=== PATIENT | female | born 1995 | race African-American/Black ===

== ENCOUNTER 2017-11-10 10:48 | Emergency (ER) | payer MEDICAID ==
[~2017-11-10] VITALS: Ht 160 cm; Wt 145.0 kg
[2017-11-10 11:03] VITALS: BP 124/81; PULSE 70; RESP 16; TEMP 97.6; O2SAT 100
[2017-11-10] MEDS ORDERED: SODIUM CHLORIDE 0.9% FLUSH 10 ML FLUSH IVF PRN (12:00)
--- NOTE | 2017-11-10 12:15 | PD ---
HPI Chief Complaint: Related Problem Time Seen by Provider: 11:38 Travel History International Travel<30 days: No Contact w/Intl Traveler<30days: No Traveled to known affect area: No History of Present Illness HPI Patient is a 22-year-old female presenting to emerge from for evaluation of vaginal bleeding. Patient states she is , her last menstrual cycle was at the beginning of October. She reports that one week ago she had one day of bleeding consistent with a period, that subsided and she has had intermittent spotting since that time. She does report continuing to pass small clots. She also reports burning at the end of her urinary stream. Additionally patient reports nausea with occasional vomiting. She denies any abdominal pain, chest pain, fever, chills, shortness of breath. This is her first . She has not been evaluated by [facility]. Symptom onset was sudden, symptoms are mild in nature. [facility] Past Medical History Medical History: Denies Significant Hx ?: Social History Alcohol Use: Yes Tobacco Use: No Substance Use: Yes ("weed") Allergies-Medications (Allergen,Severity, Reaction): Coded Allergies: No Known Allergies (Unverified , 11/10/17) Review of Systems Except as stated in HPI: all other systems reviewed are Neg Genitourinary: Positive: Dysuria, Vaginal Bleeding Physical Exam Narrative GENERAL: Well-developed, well-nourished, alert female. Presenting in no acute distress. SKIN: Warm and dry. HEAD: Atraumatic. Normocephalic. EYES: Pupils equal and round. No scleral icterus. No injection or drainage. ENT: No nasal bleeding or discharge. Mucous membranes pink and moist. NECK: Trachea midline. No JVD. CARDIOVASCULAR: Regular rate and rhythm. RESPIRATORY: No accessory muscle use. Clear to auscultation. Breath sounds equal bilaterally. GASTROINTESTINAL: Abdomen soft, non-tender, nondistended. Hepatic and splenic margins not palpable. MUSCULOSKELETAL: Extremities without clubbing, cyanosis, or edema. No obvious deformities. NEUROLOGICAL: Awake and alert. No obvious cranial nerve deficits. Motor grossly within normal limits. Five out of 5 muscle strength in the arms and legs. Normal speech. PSYCHIATRIC: Appropriate mood and affect; insight and judgment normal. Data Data Last Documented VS Vital Signs Date Time Temp Pulse Resp B/P (MAP) Pulse Ox O2 Delivery O2 Flow Rate FiO2 11/10/17 11:03 97.6 70 16 124/81 (95) 100 Orders Orders Ed Urine Pregnancytest Poc (11/10/17 11:42) Beta Hcg (Quant/Titer) (11/10/17 11:52) Complete Blood Count With Diff (11/10/17 11:52) Comprehensive Metabolic Panel (11/10/17 11:52) Complete Rh (11/10/17 11:52) Urinalysis - C+S If Indicated (11/10/17 11:52) Iv Access Insert/Monitor (11/10/17 11:52) Sodium Chloride 0.9% Flush (Ns Flush) (11/10/17 12:00) Urine Culture (11/10/17 12:00) Us Pelvis (Ques Preg/Ectopic) (11/10/17 ) Ed Discharge Order (11/10/17 13:41) Labs Laboratory Tests Test 11/10/17 12:00 11/10/17 12:05 Urine Color YELLOW Urine Turbidity HAZY Urine pH 6.0 Urine Specific [place] 1.027 Urine Protein 30 mg/dL Urine Glucose (UA) NEG mg/dL Urine Ketones NEG mg/dL Urine Occult Blood SMALL Urine Nitrite NEG Urine Bilirubin NEG Urine Urobilinogen LESS THAN 2.0 MG/DL Urine Leukocyte Esterase LARGE Urine RBC 10 /hpf Urine WBC 69 /hpf Urine Squamous Epithelial Cells 23 /hpf Urine Transitional Epithelial Cells 1 /hpf Urine Bacteria MOD /hpf Urine Mucus FEW /lpf Microscopic Urinalysis Comment CULTURE INDICATED White Blood Count 7.0 TH/MM3 Red Blood Count 4.46 MIL/MM3 Hemoglobin 13.8 GM/DL Hematocrit 39.9 % Mean Corpuscular Volume 89.5 FL Mean Corpuscular Hemoglobin 30.8 PG Mean Corpuscular Hemoglobin Concent 34.5 % Red Cell Distribution Width 12.9 % Platelet Count 406 TH/MM3 Mean Platelet Volume 6.8 FL Neutrophils (%) (Auto) 73.6 % Lymphocytes (%) (Auto) 19.6 % Monocytes (%) (Auto) 6.0 % Eosinophils (%) (Auto) 0.6 % Basophils (%) (Auto) 0.2 % Neutrophils # (Auto) 5.2 TH/MM3 Lymphocytes # (Auto) 1.4 TH/MM3 Monocytes # (Auto) 0.4 TH/MM3 Eosinophils # (Auto) 0.0 TH/MM3 Basophils # (Auto) 0.0 TH/MM3 CBC Comment DIFF FINAL Differential Comment Blood Urea Nitrogen 7 MG/DL Creatinine 0.77 MG/DL Random Glucose 93 MG/DL Total Protein 8.2 GM/DL Albumin 4.2 GM/DL Calcium Level 9.3 MG/DL Alkaline Phosphatase 52 U/L Aspartate Amino Transf (AST/SGOT) 13 U/L Alanine Aminotransferase (ALT/SGPT) 16 U/L Total Bilirubin 0.5 MG/DL Sodium Level 134 MEQ/L Potassium Level 3.7 MEQ/L Chloride Level 103 MEQ/L Carbon Dioxide Level 24.4 MEQ/L Anion Gap 7 MEQ/L Estimat Glomerular Filtration Rate 116 ML/MIN Human Chorionic Gonadotropin, Quant 90876 MIU/ML MDM Medical Decision Making Medical Screen Exam Complete: Yes Emergency Medical Condition: Yes Interpretation(s) Vital Signs Date Time Temp Pulse Resp B/P (MAP) Pulse Ox O2 Delivery O2 Flow Rate FiO2 11/10/17 11:03 97.6 70 16 124/81 (95) 100 Differential Diagnosis Threatened versus miscarriage versus bleeding during versus other Narrative Course Patient is a 22-year-old female presenting to emerge from for evaluation of vaginal bleeding during . Patient's vital signs are stable, labs and imaging ordered and pending. Urine test at bedside is positive. Ultrasound ordered and pending CBC with no acute findings Chemistry is unremarkable HCG is 86,474 UA is consistent with UTI, reflex culture is pending. Pelvic ultrasound shows single intrauterine gestation corresponding to 7 weeks 6 days with heart rate of 157 bpm. Patient was advised on findings. She then requested information regarding clinics in the area. Patient was advised that if she decided to continue with the she should have repeat hCG test in 48 hours. She is encouraged to return to emergency department for any new or worsening symptoms. Patient verbalized understanding of instructions. Patient stable for discharge. Diagnosis Primary Impression: at early stage Additional Impressions: Bleeding in early UTI (urinary tract infection) Qualified Codes: N39.0 - Urinary tract infection, site not specified; R31.9 - Hematuria, unspecified Referrals: Resident Buyer 1 week Patient Instructions: First Trimester (ED), General Instructions Additional Instructions: Pelvic rest/avoid sexual intercourse until evaluated by [facility] Return to emergency department immediately for any new or worsening symptoms You should return to emergency department for repeat hCG testing in 48 hours Med/Other Pt SpecificInfo: Prescription(s) given, No Change to Meds Scripts Cephalexin (Keflex) 500 Mg Cap 500 MG PO Q12H for Infection, #14 CAP 0 Refills Prov: Wendy Alejandre 11/10/17 Disposition: 01 DISCHARGE HOME Condition: Stable Wendy Alejandre Nov 10, 2017 12:15
[2017-11-10 12:22] LABS: AUTOMATED NEUTROPHIL # 5.2 TH/MM3 (1.8-7.7); BASOPHIL % 0.2 % (0.0-2.0); EOSINOPHIL % 0.6 % (0.0-4.0); HEMATOCRIT 39.9 % (35.0-46.0); HEMOGLOBIN 13.8 GM/DL (11.6-15.3); LYMPH % 19.6 % (9.0-44.0); LYMPHOCYTE # 1.4 TH/MM3 (1.0-4.8); MEAN CELL VOLUME 89.5 FL (80.0-100.0); MEAN CORPUSCULAR HEMOGLOBIN 30.8 PG (27.0-34.0); MEAN CORPUSCULAR HGB CONC 34.5 % (32.0-36.0); MEAN PLATELET VOLUME 6.8 FL (7.0-11.0); MONOCYTE # 0.4 TH/MM3 (0-0.9); NEUT % 73.6 % (16.0-70.0); PLATELET COUNT 406 TH/MM3 (150-450); RED BLOOD COUNT 4.46 MIL/MM3 (4.00-5.30); RED CELL DISTRIBUTION WIDTH 12.9 % (11.6-17.2)
[2017-11-10 12:32] LABS: BACTERIA, URINE MOD /hpf; BILIRUBIN, URINE NEG (NEG); BLOOD, URINE SMALL (NEG); GLUCOSE,URINE NEG (NEG); KETONE, URINE NEG (NEG); MUCUS URINE FEW /lpf (OCC); NITRITE,URINE NEG (NEG); SQUAMOUS EPITHELIAL CELL URINE 23 /hpf (0-5); TRANSITIONAL EPI CELLS, URINE 1 /hpf; URINE COLOR YELLOW (YELLW/STRAW); URINE LEUKOCYTE ESTERASE LARGE (NEG)
[2017-11-10 12:33] LABS: ALBUMIN 4.2 GM/DL (3.4-5.0); AST (GOT) 13 U/L (16-38); BICARBONATE 24.4 MEQ/L (21.0-32.0); BLOOD UREA NITROGEN 7 MG/DL (7-18); CALCIUM 9.3 MG/DL (8.5-10.1); CHLORIDE 103 MEQ/L (98-107); CREATININE 0.77 MG/DL (0.50-1.00); GLOMERULAR FILTRATION RATE 116 ML/MIN (>89); GLUCOSE,RANDOM 93 MG/DL (74-106); SODIUM (NA) 134 MEQ/L (136-145)
[2017-11-10 12:34] LABS: ALT (GPT) 16 U/L (9-42)
[2017-11-10 12:50] LABS: ALKALINE PHOSPHATASE 52 U/L (45-117); TOTAL BILIRUBIN ADULT 0.5 MG/DL (0.2-1.0); TOTAL PROTEIN 8.2 GM/DL (6.4-8.2)
--- NOTE | 2017-11-10 13:33 | RADRPT ---
EXAM DATE/TIME: 11/10/2017 12:27 [place] COMPARISON: No previous studies available for comparison. INDICATIONS : Bleeding with . LAB(S): Beta-hC,474 MEDICAL HISTORY : . SURGICAL HISTORY : None. ENCOUNTER: Initial ACUITY: 1 week PAIN SCORE: 0/10 LOCATION: Bilateral pelvis MEASUREMENTS: UTERUS: 8.2 x 5.2 x 5.9 cm ENDOMETRIAL STRIPE: 18 mm RIGHT OVARY: 4.5 x 2.7 x 2.0 cm LEFT OVARY: 3.5 x 1.9 x 2.0 cm FREE FLUID: No CROWN RUMP LENGTH: 1.5 cm = 7 WKS 6 DAYS FHR: 157 BPM FINDINGS: UTERUS: There is an intrauterine gestational sac with pole present corresponding to 7 weeks and 6 days. cardiac activity is present with heart rate of 157 bpm. RIGHT OVARY: Ovary contains no mass or significant cystic lesion. LEFT OVARY: Ovary contains no mass or significant cystic lesion. MISCELLANEOUS: No free fluid. CONCLUSION: 1. Single intrauterine gestation corresponding to 7 weeks 6 days with heart rate of 157 bpm. David Crisostomo MD on November 10, 2017 at 13:29 Board Certified Radiologist. This report was verified electronically.
[2017-11-10] MEDS ORDERED: CEPH-460 PO (14:12)
== END 2017-11-10 15:01 | disposition home or self-care (01) ==
LOC: NEPD 10:48
DX: O20.9 Hemorrhage in early pregnancy, unspecified (principal); O23.41 Unspecified infection of urinary tract in pregnancy, first trimester; Z3A.01 Less than 8 weeks gestation of pregnancy
CPT/HCPCS: 76700; 80053; 81001; 84702; 84703; 85025; 86901; 87086